=== PATIENT | male | born 1940 | race Caucasian/White ===

== ENCOUNTER 2018-12-14 05:19 | Day surgery (SDC) | payer MEDICARE, OTHER ==
[2018-12-06 09:52] LABS: BASOPHILS % (AUTO) 0.7 % (0-1); EOSINOPHILS # (AUTO) 0.1 X10'3 (0-0.9); LYMPHOCYTES # (AUTO) 1.1 X10'3 (1.1-4.8); LYMPHOCYTES % (AUTO) 18.6 % (21-51); MEAN CORPUSCULAR HEMOGLOBIN 31.9 PG (27.0-31.0); MEAN CORPUSCULAR HGB CONC 32.9 g/dL (33.0-36.5); MEAN CORPUSCULAR VOLUME 96.9 FL (78-98); MEAN PLATELET VOLUME 8.5 FL (7.4-10.4); MONOCYTES # (AUTO) 0.5 X10'3 (0-0.9); MONOCYTES % (AUTO) 8.9 % (2-12); NEUTROPHILS # (AUTO) 4.2 X10'3 (1.8-7.7); NEUTROPHILS % (AUTO) 69.8 % (42-75); PRE OP HEMATOCRIT 41.4 % (42.0-52.0); PRE OP HEMOGLOBIN 13.6 g/dL (14.0-17.9); PRE OP PLATELET COUNT 217 X10'3 (140-440); RED BLOOD COUNT 4.27 X10'6 (4.70-6.10); RED CELL DISTRIBUTION WIDTH 15.1 % (11.5-14.5)
[2018-12-06 10:05] LABS: ALBUMIN 3.5 G/DL (3.4-5.0); ALBUMIN/GLOBULIN RATIO 1.1 (1.1-1.5); ALKALINE PHOSPHATASE 56 IU/L (46-116); BLOOD UREA NITROGEN 25 MG/DL (7-18); BUN/CREATININE RATIO 26.3 (5.4-32.0); CALCIUM 9.3 MG/DL (8.5-10.1); CHLORIDE 110 MMOL/L (99-107); CREATININE 0.95 MG/DL (0.60-1.10); PRE OP ALT 24 U/L (30-65); PRE OP ANION GAP 7 (8-16); PRE OP AST 18 U/L (10-37); PRE OP BILIRUB, TOTAL 0.5 MG/DL (0.0-1.0); PRE OP GLUCOSE 123 MG/DL (70-104); PRE OP POTASSIUM 4.1 MMOL/L (3.4-5.1); PRE OP SODIUM 146 MMOL/L (135-145); TOTAL CARBON DIOXIDE 28.6 MMOL/L (24-32); TOTAL PROTEIN 6.6 G/DL (6.4-8.2); eGFR 76 ML/MIN
[2018-12-14] VITALS (7 sets, daily range): BP systolic 126–150; BP diastolic 64–75
[~2018-12-14] VITALS: Ht 172.7 cm; Wt 67.4 kg
[~2018-12-14 05:19] MED LIST: AMLO-333 PO; ASCO500T9 PO; ASPI81TA52 PO; ATEN-55 PO; ATOR40TA72 PO; GLUC-133 PO; HYDR12.55 PO; LACT1CAP65; METF-438 PO; MULT-1085 PO; OMEG1CAP PO
[2018-12-14] MEDS ORDERED: ceFAZolin 1GM/D5W- ADD-VANTAGE 50 ML IV ONE (05:30)
[2018-12-14] MEDS ORDERED: ringers solution, lacted 1,000 ML IV SCH (05:30)
[2018-12-14] MEDS ORDERED: famotidine 20mg tablet PO ONE (05:30)
[2018-12-14] MEDS ORDERED: DOCUMENT DATE & TIME OF BETA-BLOCKER PO ONE (05:30)
[2018-12-14] MEDS ORDERED: BUPIVAcaine/PF 2.5mg/ml (0.25%) 10ml vial ONE (06:35)
[2018-12-14] MEDS ORDERED: LIDOcaine 0.5% (5mg/ml) 50ml vial ONE (07:38)
[2018-12-14] MEDS ORDERED: fentaNYL/PF 50MCG/1 ML 2ML syringe ONE (07:43)
[2018-12-14] MEDS ORDERED: midazolam 2 mg/2 ml injection ONE (07:43)
[2018-12-14] MEDS ORDERED: hydrALAZINE 20mg/ml inj. IV ONE (07:47)
--- NOTE | 2018-12-14 08:20 | NUR ---
Received from OR via BED , accompanied by Anesthesiologist DR PEREIRA and report given by Anesthesiolgist. PATIENT WAKING UP, NO S/S OF PAIN, V/S WNL, NEUROVASCULAR CHECKS INTACT. PIV 20G TO LUE , SCD ON, DRESSING TO RIGHT WRIST CDI.
--- NOTE | 2018-12-14 09:00 | NUR ---
PATIENT A&OX4, DENIES PAIN, V/S WNL, NEUROVASCULAR CHECKS INTACT. PIV 20G TO LUE D/C , SCD OFF, DRESSING TO RIGHT WRIST CDI. iCE AND ELEVATION TO RUE. I HAVE REVIEWED D/C INSTRUCTIONS WITH PATIENT AND FAMILY AND THEY HAVE VERBALIZED UNDERSTANING. PATIENT D/C HOME WITH ALL BELONGS AND FAMILY GAVE TRANSPORT HOME
== END 2018-12-14 09:00 | disposition home or self-care (01) ==
LOC: PAS 05:19
PROVIDERS: ATTEND Orthopaedic Surgery Hand Surgery
DX: G56.03 Carpal tunnel syndrome, bilateral upper limbs (principal); I10 Essential (primary) hypertension; E11.9 Type 2 diabetes mellitus without complications; Z87.891 Personal history of nicotine dependence; Z79.82 Long term (current) use of aspirin; Z79.84 Long term (current) use of oral hypoglycemic drugs; Z79.899 Other long term (current) drug therapy; Z98.890 Other specified postprocedural states; Z72.89 Other problems related to lifestyle
CPT/HCPCS: 36415; 64721; 80053; 82948; 85025; 93005; J0690; J2001; J2250; J3010; J3490; A4215; J0360; J7120

== ENCOUNTER 2019-01-22 05:26 | Day surgery (SDC) | payer MEDICARE, OTHER ==
[~2019-01-22] VITALS: Ht 172.7 cm; Wt 67.5 kg
[2019-01-22] VITALS (10 sets, daily range): BP systolic 123–151; BP diastolic 64–79
[~2019-01-22 05:26] MED LIST changes: +ringers solution, lacted 1,000 ML IV SCH
[2019-01-22] MEDS ORDERED: famotidine 20mg tablet PO ONE (05:30)
[2019-01-22] MEDS ORDERED: cefazolin/dext.iso 2gm/50ml 50 ML IV ONE (05:30)
[2019-01-22] MEDS ORDERED: DOCUMENT DATE & TIME OF BETA-BLOCKER PO ONE (05:30)
[2019-01-22] MEDS ORDERED: LIDOcaine 1% (10mg/ml) 2ml vial ONE (05:39)
[2019-01-22 06:27] LABS: BASOPHILS % (AUTO) 0.9 % (0-1); EOSINOPHILS # (AUTO) 0.1 X10'3 (0-0.9); EOSINOPHILS % (AUTO) 2.9 % (0-6); LYMPHOCYTES # (AUTO) 1.2 X10'3 (1.1-4.8); LYMPHOCYTES % (AUTO) 25.8 % (21-51); MEAN CORPUSCULAR HEMOGLOBIN 33.1 PG (27.0-31.0); MEAN CORPUSCULAR HGB CONC 33.9 g/dL (33.0-36.5); MEAN CORPUSCULAR VOLUME 97.8 FL (78-98); MEAN PLATELET VOLUME 8.6 FL (7.4-10.4); MONOCYTES # (AUTO) 0.5 X10'3 (0-0.9); MONOCYTES % (AUTO) 11.8 % (2-12); NEUTROPHILS # (AUTO) 2.7 X10'3 (1.8-7.7); NEUTROPHILS % (AUTO) 58.6 % (42-75); PRE OP HEMATOCRIT 41.9 % (42.0-52.0); PRE OP HEMOGLOBIN 14.2 g/dL (14.0-17.9); PRE OP PLATELET COUNT 232 X10'3 (140-440); RED BLOOD COUNT 4.28 X10'6 (4.70-6.10); RED CELL DISTRIBUTION WIDTH 14.5 % (11.5-14.5)
[2019-01-22] MEDS ORDERED: BUPIVAcaine/PF 2.5mg/ml (0.25%) 10ml vial ONE (06:32)
[2019-01-22 06:37] LABS: ALBUMIN 3.6 G/DL (3.4-5.0); ALBUMIN/GLOBULIN RATIO 1.1 (1.1-1.5); ALKALINE PHOSPHATASE 66 IU/L (46-116); BLOOD UREA NITROGEN 21 MG/DL (7-18); BUN/CREATININE RATIO 18.1 (5.4-32.0); CALCIUM 9.4 MG/DL (8.5-10.1); CHLORIDE 106 MMOL/L (99-107); CREATININE 1.16 MG/DL (0.60-1.10); PRE OP ALT 24 U/L (30-65); PRE OP ANION GAP 8 (8-16); PRE OP AST 23 U/L (10-37); PRE OP BILIRUB, TOTAL 1.2 MG/DL (0.0-1.0); PRE OP GLUCOSE 130 MG/DL (70-104); PRE OP POTASSIUM 4.4 MMOL/L (3.4-5.1); PRE OP SODIUM 142 MMOL/L (135-145); TOTAL CARBON DIOXIDE 28.1 MMOL/L (24-32); TOTAL PROTEIN 6.9 G/DL (6.4-8.2); eGFR 61 ML/MIN
[2019-01-22] MEDS ORDERED: LIDOcaine 0.5% (5mg/ml) 50ml vial ONE (07:16)
[2019-01-22] MEDS ORDERED: fentaNYL/PF 50MCG/1 ML 2ML syringe ONE (07:18)
[2019-01-22] MEDS ORDERED: midazolam 2 mg/2 ml injection ONE (07:19)
[2019-01-22] MEDS ORDERED: ringers solution, lacted 1,000 ML IV SCH (07:43)
[2019-01-22] MEDS ORDERED: meperidine/PF 25mg/ml syringe IV PRN ×3 (07:45)
[2019-01-22] MEDS ORDERED: ondansetron/PF 4mg/2ml inj IV PRN (07:45)
[2019-01-22] MEDS ORDERED: proCHLORperazine 10 MG/2 ml inj IV PRN (07:45)
[2019-01-22] MEDS ORDERED: morphine 4 MG/ML inj SYRINge IV PRN ×2 (07:45)
--- NOTE | 2019-01-22 07:45 | NUR ---
ADMITTED TO PACU FROM OR ACCOMPANIED BY ANESTHESIA. INTIAL PHYSICAL ASSESSMENT DONE AND RECORDED. REPORT RECEIVED FROM ANESTHESIA.
--- NOTE | 2019-01-22 09:15 | NUR ---
DISCHARGE CRITERIA MET, DISCHARGE INSTRUCTIONS GIVEN, DEMONSTRATES VERBAL UNDERSTANDING. DISCHARGED HOME IN GOOD CONDITION.
== END 2019-01-22 09:15 | disposition home or self-care (01) ==
LOC: PAS 05:26
PROVIDERS: ATTEND Orthopaedic Surgery Hand Surgery
DX: G56.03 Carpal tunnel syndrome, bilateral upper limbs (principal); I10 Essential (primary) hypertension; E11.9 Type 2 diabetes mellitus without complications; Z87.891 Personal history of nicotine dependence; Z79.899 Other long term (current) drug therapy; Z98.890 Other specified postprocedural states; Z79.82 Long term (current) use of aspirin; Z79.84 Long term (current) use of oral hypoglycemic drugs; Z72.89 Other problems related to lifestyle
CPT/HCPCS: 36415; 64721; 80053; 85025; J2001; J2250; J3010; J3490; A4215; J7120

== ENCOUNTER 2023-12-08 10:36 | Day surgery (SDC) | payer MEDICARE, OTHER ==
[2023-11-30 12:49] LABS: BASOPHILS % (AUTO) 0.5 % (0-1); EOSINOPHILS # (AUTO) 0.1 X10'3 (0-0.9); EOSINOPHILS % (AUTO) 2.7 % (0-6); LYMPHOCYTES # (AUTO) 1.1 X10'3 (1.1-4.8); MEAN CORPUSCULAR HEMOGLOBIN 32.9 PG (27.0-31.0); MEAN CORPUSCULAR HGB CONC 33.2 g/dL (33.0-36.5); MEAN CORPUSCULAR VOLUME 99.3 FL (78-98); MEAN PLATELET VOLUME 8.2 FL (7.4-10.4); MONOCYTES # (AUTO) 0.4 X10'3 (0-0.9); MONOCYTES % (AUTO) 8.5 % (2-12); NEUTROPHILS # (AUTO) 3.5 X10'3 (1.8-7.7); NEUTROPHILS % (AUTO) 67.3 % (42-75); PRE OP HEMATOCRIT 39.8 % (42.0-52.0); PRE OP HEMOGLOBIN 13.2 g/dL (14.0-17.9); PRE OP PLATELET COUNT 245 X10'3 (140-440); PRE OP WHITE BLOOD COUNT 5.2 10'3 (4.8-10.8); RED BLOOD COUNT 4.01 X10'6 (4.70-6.10); RED CELL DISTRIBUTION WIDTH 15.2 % (11.5-14.5)
[2023-11-30 12:59] LABS: ALBUMIN 3.6 G/DL (3.4-5.0); ALBUMIN/GLOBULIN RATIO 1.1 (1.1-1.5); ALKALINE PHOSPHATASE 52 IU/L (46-116); BLOOD UREA NITROGEN 25 MG/DL (7-18); CALCIUM 9.5 MG/DL (8.5-10.1); CHLORIDE 109 MMOL/L (99-107); CREATININE 1.19 MG/DL (0.60-1.10); PRE OP ALT 23 U/L (30-65); PRE OP ANION GAP 8 (8-16); PRE OP AST 21 U/L (10-37); PRE OP BILIRUB, TOTAL 0.9 MG/DL (0.0-1.0); PRE OP GLUCOSE 108 MG/DL (70-104); PRE OP POTASSIUM 5.1 MMOL/L (3.4-5.1); PRE OP SODIUM 144 MMOL/L (135-145); TOTAL CARBON DIOXIDE 26.9 MMOL/L (24-32); TOTAL PROTEIN 6.9 G/DL (6.4-8.2); eGFR 58 ML/MIN
[~2023-12-08] VITALS: Ht 167.6 cm; Wt 59.8 kg
[2023-12-08] VITALS (12 sets, daily range): BP systolic 118–168; BP diastolic 63–86; PULSE 62–108; RESP 14–18; TEMP 98.2; O2SAT 95–99
[2023-12-08] MEDS: cefazolin 2gm/D5W 100mL 100 ML IV ONE (05:30)
[~2023-12-08 10:36] MED LIST changes: -AMLO-333 PO; +AMLO5TAB16 PO; +ASCO500T23 PO; -ASCO500T9 PO; -ATEN-55 PO; +CHOL20004 PO; -HYDR12.55 PO; -OMEG1CAP PO; +OMEG1CAP61 PO; +PREVAGEN; +SAW PALMETTO; +SPIR25TA5 PO; -ringers solution, lacted 1,000 ML IV SCH
[2023-12-08] MEDS ORDERED: morphine 4 MG/ML inj SYRINge IV PRN (11:00)
[2023-12-08] MEDS ORDERED: fentaNYL/PF 50MCG/1 ML 2ML syringe IV PRN ×2 (11:00)
[2023-12-08] MEDS ORDERED: ondansetron/PF 4mg/2ml inj IV PRN (11:00)
[2023-12-08] MEDS ORDERED: ringers solution, lacted 1,000 ML IV SCH (11:00)
[2023-12-08] MEDS ORDERED: enalaprilat dihydrate 2.5mg/2ml vial IV PRN (11:00)
[2023-12-08] MEDS ORDERED: labetalol 20mg/4ml (5mg/ml) syringe IV PRN (11:00)
[2023-12-08] MEDS ORDERED: morphine 2 MG/ML inj. syringe IV PRN (11:00)
[2023-12-08] MEDS: famotidine 20mg tablet PO ONE (11:28)
[2023-12-08] MEDS: tamsulosin 0.4mg capsule PO ONE (11:28)
[2023-12-08] MEDS: ringers solution, lacted 1,000 ML IV SCH (11:29)
[2023-12-08] MEDS ORDERED: LIDOcaine 1% (10mg/ml)w/preservative inj. 20ml MDV ONE (11:54)
[2023-12-08] MEDS ORDERED: sevoflurane 250ml liquid IH ONE (11:57)
[2023-12-08] MEDS ORDERED: midazolam 1 mg/ML 2ml injection ONE (12:07)
[2023-12-08] MEDS ORDERED: fentaNYL/PF 50MCG/1 ML 2ML syringe ONE (12:07)
[2023-12-08] MEDS ORDERED: rocuronium 10mg/ml inj IV ONE (12:14)
[2023-12-08] MEDS ORDERED: propofol inj 20 ML IV ONE (12:14)
[2023-12-08] MEDS ORDERED: ondansetron/PF 4mg/2ml inj ONE (12:14)
[2023-12-08] MEDS ORDERED: LIDOcaine 2% (20mg/ml) 5ml vial ONE (12:14)
[2023-12-08] MEDS ORDERED: neostigmine methylsulfate 1 MG/ML 10ml vial ONE (12:39)
[2023-12-08] MEDS ORDERED: glycopyrrolate 0.2mg/ml inj ONE (12:40)
[2023-12-08] MEDS: BUPIVAcaine 2.5mg/ml inj 50ml vial (contains preservative) ONE (12:48)
[2023-12-08] MEDS: BUPIVAcaine 2.5mg/ml inj 50ml vial (contains preservative) SQ ONE (13:01)
--- NOTE | 2023-12-08 13:18 | NUR ---
Received from OR via [facility] , accompanied by Anesthesiologist LESLIE and report given by Anesthesiolgist. PATIENT WITH 20G PIVI N RIGHT FOREARM RUNNING LR AT 100. 3 LAP SITES WITH BANDAIDS PRESENT. VSS AT THIS TIME 10L MASK ON WITH 98% SATURATIONS. WILL CONTINUE TO ASSESS AND TREAT FOR PAIN. Addendum: 12/08/23 at 1328 by Mahendra Donovan RN, RN Amended: Links added.
[2023-12-08] MEDS ORDERED: HYDROcodone/acetaminophen 5mg/325mg tablet PO PRN (13:35)
--- NOTE | 2023-12-08 16:06 | NUR ---
ALL CRITERIA FOR DC HOME HAS BEEN ACHIEVED. VSS. MAC CATHETER PLACED FOR URINE OUTPUT OF 300CC. PATIENT TOLERATED CATHETER PLACEMENT WELL. PATIENTS WITH AND DAUGHTER PRESENT FOR ALL DISCHARGE INSTRUCTIONS. ALL INSTRUCTIONS COVERED WITH REGARDING CATHETER CARE AND PROPER USAGE WELL DC IN DAYS. ALL EQUIPMENT NEEDED FOR CARE OF A CATHETER AND EMPTY IT WERE GIVEN TO THE PATIENT. PATIENTS FEELS COMPETENT IN CARING FOR THE CATHETER WELL REMOVING CATHETER IN 2 DAYS. DAUGHTER DROVE PATIENT AND MOTHER HOME AND HAS AN UNDERSTANDING OF CATHETER CARE WELL. Addendum: 12/08/23 at 1712 by Mahendra Donovan RN, RN Amended: Links added.
== END 2023-12-08 16:06 | disposition home or self-care (01) ==
LOC: PAS 10:36
PROVIDERS: ATTEND Surgery
DX: K40.90 Unilateral inguinal hernia, without obstruction or gangrene, not specified as recurrent (principal); I12.9 Hypertensive chronic kidney disease with stage 1 through stage 4 chronic kidney disease, or unspecified chronic kidney disease; E11.22 Type 2 diabetes mellitus with diabetic chronic kidney disease; N18.2 Chronic kidney disease, stage 2 (mild); Z87.891 Personal history of nicotine dependence; Z86.73 Personal history of transient ischemic attack (TIA), and cerebral infarction without residual deficits; Z79.82 Long term (current) use of aspirin; Z79.84 Long term (current) use of oral hypoglycemic drugs; Z79.899 Other long term (current) drug therapy; Z98.890 Other specified postprocedural states; Z82.49 Family history of ischemic heart disease and other diseases of the circulatory system
CPT/HCPCS: 36415; 49650; 80053; 82948; 85025; 93005; A4215; A4314; A4618; C1781; J0690; J1100; J2001; J2250; J2405; J2704; J2710; J3010; J3490; J7030; J7120; Z7506; Z7508; Z7512; Z7610; C1758